=== PATIENT | male | born 1945 | race Caucasian/White ===

== ENCOUNTER → 2016-11-02 | Outpatient (REF) | payer MEDICARE, MEDICAID ==
[~2016-11-02] MED LIST: /BACIOPOI TOP; /PANT40TA OR; /QUET10TA OR; /TAMS4CA OR; ACEP650S PR; ACET-654 GT; ACET65TA OR; AKWASOL OU; ALBU83IN INH; ALBU83IN NEB; ATEN50TA2 GT; BACL-67 GT; BACL10TA2 OR; CALCCHW12 OR; CALCTAB41 PO; CELE10TA OR; CELE20TA GT; CIPR500T4 PO; COLA100C2 OR; DEPA500T OR; DEPA500T2 OR; DIVA500T3 GT; DULC10SU2 PR; DULCOLAX PR; ENSULIQ75 PO; FLAG500T PO; FLEEENE4 PR; FLOM5CAP PO; GABA600T3 OR; GLUC500T OR; GUAI1TAB PO; HYDR-3713 PO; IMOD2TAB16 PO; IMODIUM PO; INSUDET SC; INSUHUMDS SC; IPRASOL4 INH; LEVA500T PO; LEVA750T GT; LORA0.5T OR; METF1000 PO; METHIMAZOLE PO; MILKSUS GT; MILKSUS OR; MIRA3350 GT; MIRALEX PO; MULTIVIT PO; NAPR250T OR; NYST100024 TOP; NYSTPOW4 TOP; Norco PO; OLAN5TAB GT; ONDA4TAB6 PO; PANT40TA2 PO; PERC5TAB8 OR; PREV30CA11 GT; PRIL20CA OR; PROP40TA OR; ROBISYP5 PO; SENN1TAB2 GT; SENN8.6T5 OR; SERO1TAB2 GT; SIME80TA GT; SIMV10TA2 GT; SIMV10TA2 OR; SINE25TA2 OR; SINE25TA5 GT; TAPA5TAB GT; TRAZ100T4 GT; TYLE325T5 PO; VITMTA GT; ZYPR5TAB2 GT
[2016-11-02 14:15] LABS: BASO % 0.5 % (0.0-1.0); EOS # 0.2 K/mm3 (0.0-0.50); LARGE UNSTAINED CELL # 0.2 K/mm3 (0.0-0.4); LARGE UNSTAINED CELL % 2.8 % (0.0-4.0); LYMPH # 2.2 K/mm3 (1.5-4.5); LYMPH % 26.9 % (24.0-44.0); MEAN CORPUSCULAR HEMOGLOBIN 28.9 pg (27.0-33.0); MEAN CORPUSCULAR HGB CONC 31.6 g/dl (32.0-36.5); MEAN CORPUSCULAR VOLUME 91.6 fl (80.0-96.0); MONO # 0.7 K/mm3 (0.0-0.8); NEUTROPHILS % 59.7 % (36.0-66.0); PLATELET COUNT, AUTOMATED 331 k/mm3 (150-450); RED CELL DISTRIBUTION WIDTH 13.7 % (11.5-14.5); WHITE BLOOD COUNT 8.3 K/mm3 (4.0-10.0)
[2016-11-02 14:34] LABS: ALBUMIN 2.8 GM/DL (3.2-5.2); ALBUMIN/GLOBULIN RATIO 0.78 (1.00-1.93); ALKALINE PHOSPHATASE 44 U/L (45-117); ALT/SGPT < 6 U/L (12-78); ANION GAP 6 MEQ/L (8-16); AST/SGOT 9 U/L (15-37); BILIRUBIN,TOTAL 0.2 MG/DL (0.2-1.0); BLOOD UREA NITROGEN 23 MG/DL (7-18); CALCIUM LEVEL 9.4 MG/DL (8.8-10.2); CARBON DIOXIDE LEVEL 37 MEQ/L (21-32); CHLORIDE LEVEL 98 MEQ/L (98-107); CREATININE FOR GFR 0.69 MG/DL (0.70-1.30); GLOMERULAR FILTRATION RATE > 60.0 (>49); GLUCOSE, FASTING 186 MG/DL (80-110); POTASSIUM SERUM 4.8 MEQ/L (3.5-5.1); SODIUM LEVEL 141 MEQ/L (136-145); TOTAL PROTEIN 6.4 GM/DL (6.4-8.2)
--- NOTE | 2016-11-02 18:57 | ECGEPIP ---
Stationary ECG Study [facility] Test Date: 2016-11-02 Pat Name: HARDEEP OSMAN Department: Room: - Gender: M [employer]: : 1945 Requested By: Aden Duran Order Number: [id number] Reading MD: Clark Espino Measurements Intervals [place] Rate: 89 P: 47 CT: 152 QRS: -22 QRSD: 88 T: 19 QT: 371 QTc: 452 Interpretive Statements SINUS RHYTHM LOW QRS VOLTAGE IN PRECORDIAL LEADS POSSIBLE PRIOR INFERIOR WALL INFARCT COMPARED TO THE LAST 2 TRACINGS IN THE SYSTEM, A TYPICAL RIGHT BUNDLE BRANCH BLOCK PATTERN WAS NOTED Electronically Signed On 11-02-2016 18:56:54 EST by Clark Espino
== END | disposition home or self-care (01) ==
LOC: SKLAB7 08:00
PROVIDERS: ATTEND Family Medicine
DX: Z01.818 Encounter for other preprocedural examination (principal); E05.90 Thyrotoxicosis, unspecified without thyrotoxic crisis or storm; R94.31 Abnormal electrocardiogram [ECG] [EKG]

== ENCOUNTER → 2016-11-09 | Outpatient (REF) | payer MEDICARE, MEDICAID ==
--- NOTE | 2016-11-09 16:41 | REP ---
Portable chest x-ray: AP upright view. History: Thyroidectomy. Comparison chest x-ray September 22, 2016. There is soft tissue fullness on both sides of the trachea at the thoracic inlet with marked right to left tracheal narrowing again noted unchanged. This is compatible with thyroid enlargement, left more than right. Tracheal air column is deviated somewhat to the right as well. There is discoid atelectasis in the right base. Oxygen delivery tubing is seen. Lung metcalf are otherwise clear. Heart is mildly enlarged unchanged. Impression: 1. 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 Trachea deviated somewhat to the right. 2. Mild cardiac enlargement. 3. Coarse discoid atelectasis visible in the right base on today's chest x-ray. Signed by Gerson Hernandes MD 11/09/2016 05:09 P
== END ==
LOC: SKLAB7 07:50
PROVIDERS: ATTEND Family Medicine
DX: J98.19 Other pulmonary collapse (principal)

== ENCOUNTER → 2016-11-21 | Outpatient (REF) | payer MEDICARE, MEDICAID ==
[2016-11-21 09:43] LABS: MEAN CORPUSCULAR HEMOGLOBIN 28.6 pg (27.0-33.0); MEAN CORPUSCULAR HGB CONC 31.1 g/dl (32.0-36.5); MEAN CORPUSCULAR VOLUME 91.8 fl (80.0-96.0); RED CELL DISTRIBUTION WIDTH 14.4 % (11.5-14.5); WHITE BLOOD COUNT 12.6 K/mm3 (4.0-10.0)
[2016-11-21 10:06] LABS: ANION GAP 9 MEQ/L (8-16); BLOOD UREA NITROGEN 26 MG/DL (7-18); CALCIUM LEVEL 9.1 MG/DL (8.8-10.2); CARBON DIOXIDE LEVEL 32 MEQ/L (21-32); CHLORIDE LEVEL 100 MEQ/L (98-107); CREATININE FOR GFR 0.76 MG/DL (0.70-1.30); GLOMERULAR FILTRATION RATE > 60.0 (>49); GLUCOSE, FASTING 172 MG/DL (80-110); POTASSIUM SERUM 4.6 MEQ/L (3.5-5.1); SODIUM LEVEL 141 MEQ/L (136-145)
== END ==
LOC: SKLAB7 08:00
PROVIDERS: ATTEND Family Medicine
DX: E03.9 Hypothyroidism, unspecified (principal)

== ENCOUNTER → 2016-12-07 | Outpatient (REF) | payer MEDICARE, MEDICAID ==
[2016-12-07 13:53] LABS: MEAN CORPUSCULAR HEMOGLOBIN 28.8 pg (27.0-33.0); MEAN CORPUSCULAR HGB CONC 31.7 g/dl (32.0-36.5); MEAN CORPUSCULAR VOLUME 90.7 fl (80.0-96.0); RED CELL DISTRIBUTION WIDTH 14.2 % (11.5-14.5); WHITE BLOOD COUNT 11.3 K/mm3 (4.0-10.0)
== END ==
LOC: SKLAB7 12:46
PROVIDERS: ATTEND Family Medicine
DX: K29.70 Gastritis, unspecified, without bleeding (principal)

== ENCOUNTER → 2016-12-15 | Outpatient (REF) | payer MEDICARE, MEDICAID | LOC: SKLAB7 08:00 | PROVIDERS: ATTEND Family Medicine | DX: E04.9 Nontoxic goiter, unspecified (principal) ==

== ENCOUNTER → 2017-01-26 | Outpatient (REF) | payer MEDICARE, MEDICAID ==
[2017-01-26 09:01] LABS: BASO % 0.5 % (0.0-1.0); EOS # 0.3 K/mm3 (0.0-0.50); EOS % 3.2 % (0.0-3.0); LARGE UNSTAINED CELL # 0.2 K/mm3 (0.0-0.4); LYMPH # 1.9 K/mm3 (1.5-4.5); LYMPH % 20.5 % (24.0-44.0); MEAN CORPUSCULAR HEMOGLOBIN 28.5 pg (27.0-33.0); MEAN CORPUSCULAR HGB CONC 31.8 g/dl (32.0-36.5); MEAN CORPUSCULAR VOLUME 89.6 fl (80.0-96.0); MONO # 0.8 K/mm3 (0.0-0.8); MONO % 8.2 % (0.0-5.0); NEUTROPHILS % 65.6 % (36.0-66.0); PLATELET COUNT, AUTOMATED 242 k/mm3 (150-450); RED CELL DISTRIBUTION WIDTH 14.3 % (11.5-14.5); WHITE BLOOD COUNT 9.1 K/mm3 (4.0-10.0)
[2017-01-26 09:25] LABS: ALBUMIN 2.7 GM/DL (3.2-5.2); ALBUMIN/GLOBULIN RATIO 0.71 (1.00-1.93); ALKALINE PHOSPHATASE 52 U/L (45-117); ALT/SGPT 11 U/L (12-78); ANION GAP 7 MEQ/L (8-16); AST/SGOT 12 U/L (15-37); BILIRUBIN,TOTAL 0.2 MG/DL (0.2-1.0); BLOOD UREA NITROGEN 25 MG/DL (7-18); CALCIUM LEVEL 8.6 MG/DL (8.8-10.2); CARBON DIOXIDE LEVEL 33 MEQ/L (21-32); CHLORIDE LEVEL 100 MEQ/L (98-107); CREATININE FOR GFR 0.63 MG/DL (0.70-1.30); GLOMERULAR FILTRATION RATE > 60.0 (>49); GLUCOSE, FASTING 177 MG/DL (80-110); POTASSIUM SERUM 4.3 MEQ/L (3.5-5.1); SODIUM LEVEL 140 MEQ/L (136-145); TOTAL PROTEIN 6.5 GM/DL (6.4-8.2)
== END ==
LOC: SKLAB7 07:00
PROVIDERS: ATTEND Family Medicine
DX: E11.9 Type 2 diabetes mellitus without complications (principal); I10 Essential (primary) hypertension

== ENCOUNTER → 2017-03-13 | Outpatient (REF) | payer MEDICARE, MEDICAID | LOC: SKLAB7 18:50 | PROVIDERS: ATTEND Family Medicine | DX: N39.9 Disorder of urinary system, unspecified (principal) ==

== ENCOUNTER → 2017-03-13 | Outpatient (REF) | payer MEDICARE, MEDICAID | LOC: SKLAB7 19:33 | PROVIDERS: ATTEND Family Medicine | DX: N39.9 Disorder of urinary system, unspecified (principal) ==

== ENCOUNTER → 2017-03-15 | Outpatient (REF) | payer MEDICARE, MEDICAID | LOC: SKLAB7 02:44 | PROVIDERS: ATTEND Family Medicine | DX: N18.6 End stage renal disease (principal); E11.9 Type 2 diabetes mellitus without complications ==

== ENCOUNTER → 2017-03-23 | Outpatient (REF) | payer MEDICARE, MEDICAID | LOC: SKLAB7 08:00 | PROVIDERS: ATTEND Family Medicine | DX: E11.9 Type 2 diabetes mellitus without complications (principal); E78.4 Other hyperlipidemia ==

== ENCOUNTER → 2017-04-27 | Outpatient (REF) | payer MEDICARE, MEDICAID ==
[~2017-04-27] MED LIST changes: -ACET-654 GT; +ACET1TAB17 GT; -BACL-67 GT; +BACL1TAB9 GT; -LEVA750T GT; +LEVA750T7 GT; -METF1000 PO; +METF10004 PO; -NYST100024 TOP; +NYST1POW9 TOP; +PREV1CAP GT; -PREV30CA11 GT; +TRAZ-136 GT; -TRAZ100T4 GT
[2017-04-27 08:20] LABS: BASO % 0.7 % (0.0-1.0); EOS # 0.2 K/mm3 (0.0-0.50); EOS % 3.8 % (0.0-3.0); LARGE UNSTAINED CELL # 0.2 K/mm3 (0.0-0.4); LARGE UNSTAINED CELL % 2.4 % (0.0-4.0); LYMPH # 1.6 K/mm3 (1.5-4.5); LYMPH % 22.8 % (24.0-44.0); MEAN CORPUSCULAR HEMOGLOBIN 30.1 pg (27.0-33.0); MEAN CORPUSCULAR HGB CONC 33.1 g/dl (32.0-36.5); MEAN CORPUSCULAR VOLUME 91.1 fl (80.0-96.0); MONO # 0.6 K/mm3 (0.0-0.8); MONO % 10.1 % (0.0-5.0); NEUTROPHILS # 3.8 K/mm3 (1.8-7.7); NEUTROPHILS % 60.3 % (36.0-66.0); PLATELET COUNT, AUTOMATED 201 k/mm3 (150-450); RED CELL DISTRIBUTION WIDTH 14.1 % (11.5-14.5); WHITE BLOOD COUNT 6.2 K/mm3 (4.0-10.0)
[2017-04-27 09:14] LABS: ALBUMIN 2.7 GM/DL (3.2-5.2); ALBUMIN/GLOBULIN RATIO 0.66 (1.00-1.93); ALKALINE PHOSPHATASE 54 U/L (45-117); ALT/SGPT 16 U/L (12-78); ANION GAP 7 MEQ/L (8-16); AST/SGOT 11 U/L (15-37); BILIRUBIN,TOTAL 0.2 MG/DL (0.2-1.0); BLOOD UREA NITROGEN 22 MG/DL (7-18); CARBON DIOXIDE LEVEL 34 MEQ/L (21-32); CHLORIDE LEVEL 99 MEQ/L (98-107); CREATININE FOR GFR 0.61 MG/DL (0.70-1.30); GLOMERULAR FILTRATION RATE > 60.0 (>42); GLUCOSE, FASTING 159 MG/DL (83-110); POTASSIUM SERUM 4.2 MEQ/L (3.5-5.1); SODIUM LEVEL 140 MEQ/L (136-145); TOTAL PROTEIN 6.8 GM/DL (6.4-8.2)
== END ==
LOC: SKLAB7 07:00
PROVIDERS: ATTEND Family Medicine
DX: E11.9 Type 2 diabetes mellitus without complications (principal)

== ENCOUNTER → 2017-05-09 | Outpatient (REF) | payer MEDICARE, MEDICAID | LOC: SKLAB7 09:52 | PROVIDERS: ATTEND Family Medicine | DX: Z86.14 Personal history of Methicillin resistant Staphylococcus aureus infection (principal) ==

== ENCOUNTER → 2017-05-25 | Outpatient (REF) | payer MEDICARE, MEDICAID | LOC: SKLAB7 09:17 | PROVIDERS: ATTEND Family Medicine | DX: Z11.8 Encounter for screening for other infectious and parasitic diseases (principal) ==

== ENCOUNTER → 2017-06-02 | Outpatient (REF) | payer MEDICARE, MEDICAID | LOC: SKLAB7 14:39 | PROVIDERS: ATTEND Family Medicine | DX: Z86.14 Personal history of Methicillin resistant Staphylococcus aureus infection (principal) ==

== ENCOUNTER → 2017-06-29 | Outpatient (REF) | payer MEDICARE, MEDICAID ==
[2017-06-29 09:35] LABS: THYROXINE (T4) 7.6 UG/DL (4.5-12.0)
== END ==
LOC: SKLAB7 08:04
PROVIDERS: ATTEND Family Medicine
DX: E03.9 Hypothyroidism, unspecified (principal)

== ENCOUNTER → 2017-07-03 | Outpatient (REF) | payer MEDICARE, MEDICAID ==
[2017-07-03 08:38] LABS: ALBUMIN/GLOBULIN RATIO 0.79 (1.00-1.93); ALKALINE PHOSPHATASE 54 U/L (45-117); ALT/SGPT 19 U/L (12-78); ANION GAP 7 MEQ/L (8-16); AST/SGOT 19 U/L (15-37); BILIRUBIN,TOTAL 0.3 MG/DL (0.2-1.0); BLOOD UREA NITROGEN 25 MG/DL (7-18); CARBON DIOXIDE LEVEL 33 MEQ/L (21-32); CHLORIDE LEVEL 100 MEQ/L (98-107); CHOLESTEROL LEVEL 135 MG/DL (<200); CREATININE FOR GFR 0.77 MG/DL (0.70-1.30); GLOMERULAR FILTRATION RATE > 60.0 (>42); GLUCOSE, FASTING 163 MG/DL (83-110); POTASSIUM SERUM 4.5 MEQ/L (3.5-5.1); SODIUM LEVEL 140 MEQ/L (136-145); TOTAL PROTEIN 6.8 GM/DL (6.4-8.2); TRIGLYCERIDES LEVEL 276 MG/DL (<150)
[2017-07-03 09:04] LABS: BASO # 0.1 K/mm3 (0.0-0.2); BASO % 0.9 % (0.0-1.0); EOS # 0.2 K/mm3 (0.0-0.50); EOS % 2.4 % (0.0-3.0); LARGE UNSTAINED CELL # 0.2 K/mm3 (0.0-0.4); LARGE UNSTAINED CELL % 2.9 % (0.0-4.0); LYMPH # 1.2 K/mm3 (1.5-4.5); LYMPH % 18.6 % (24.0-44.0); MEAN CORPUSCULAR HEMOGLOBIN 31.2 pg (27.0-33.0); MEAN CORPUSCULAR HGB CONC 33.8 g/dl (32.0-36.5); MEAN CORPUSCULAR VOLUME 92.3 fl (80.0-96.0); MONO # 0.6 K/mm3 (0.0-0.8); MONO % 8.8 % (0.0-5.0); NEUTROPHILS # 4.4 K/mm3 (1.8-7.7); NEUTROPHILS % 66.3 % (36.0-66.0); PLATELET COUNT, AUTOMATED 212 k/mm3 (150-450); RED CELL DISTRIBUTION WIDTH 13.9 % (11.5-14.5); WHITE BLOOD COUNT 6.6 K/mm3 (4.0-10.0)
== END ==
LOC: SKLAB7 08:00
PROVIDERS: ATTEND Family Medicine
DX: E03.9 Hypothyroidism, unspecified (principal); E78.4 Other hyperlipidemia; R73.01 Impaired fasting glucose

== ENCOUNTER → 2017-07-27 | Outpatient (REF) | payer MEDICARE, MEDICAID ==
[2017-07-27 09:29] LABS: BASO % 0.4 % (0.0-1.0); EOS # 0.2 10^3/uL (0.0-0.50); EOS % 1.4 % (0.0-3.0); IMMATURE GRANULOCYTE % 0.3 % (0-0); LYMPH # 1.9 10^3/uL (1.5-4.5); LYMPH % 17.4 % (24.0-44.0); MEAN CORPUSCULAR HEMOGLOBIN 29.5 pg (27.0-33.0); MEAN CORPUSCULAR HGB CONC 31.6 g/dl (32.0-36.5); MEAN CORPUSCULAR VOLUME 93.5 fl (80.0-96.0); MONO # 1.2 10^3/uL (0.0-0.8); MONO % 10.8 % (0.0-5.0); NEUTROPHILS # 7.5 10^3/uL (1.8-7.7); NEUTROPHILS % 69.7 % (36.0-66.0); PLATELET COUNT, AUTOMATED 238 10^3/uL (150-450); RED CELL DISTRIBUTION WIDTH 13.6 % (11.5-14.5); WHITE BLOOD COUNT 10.7 10^3/uL (4.0-10.0)
[2017-07-27 10:15] LABS: ALBUMIN 3.1 GM/DL (3.2-5.2); ALKALINE PHOSPHATASE 52 U/L (45-117); ALT/SGPT 17 U/L (12-78); ANION GAP 3 MEQ/L (8-16); AST/SGOT 5 U/L (15-37); BILIRUBIN,TOTAL 0.3 MG/DL (0.2-1.0); BLOOD UREA NITROGEN 29 MG/DL (7-18); CALCIUM LEVEL 9.2 MG/DL (8.8-10.2); CARBON DIOXIDE LEVEL 35 MEQ/L (21-32); CHLORIDE LEVEL 102 MEQ/L (98-107); CHOLESTEROL LEVEL 132 MG/DL (<200); CREATININE FOR GFR 0.69 MG/DL (0.70-1.30); GLOMERULAR FILTRATION RATE > 60.0 (>42); GLUCOSE, FASTING 160 MG/DL (83-110); POTASSIUM SERUM 4.2 MEQ/L (3.5-5.1); SODIUM LEVEL 140 MEQ/L (136-145); TOTAL PROTEIN 7.5 GM/DL (6.4-8.2); TRIGLYCERIDES LEVEL 240 MG/DL (<150)
== END ==
LOC: SKLAB7 07:00
PROVIDERS: ATTEND Family Medicine
DX: E11.9 Type 2 diabetes mellitus without complications (principal); E78.5 Hyperlipidemia, unspecified; E03.9 Hypothyroidism, unspecified

== ENCOUNTER → 2017-09-28 | Outpatient (REF) | payer MEDICARE, MEDICAID ==
[2017-09-28 10:14] LABS: FREE T4 0.91 NG/DL (0.76-1.46)
== END ==
LOC: SKLAB7 07:00
PROVIDERS: ATTEND Family Medicine
DX: E03.9 Hypothyroidism, unspecified (principal)

== ENCOUNTER → 2017-10-12 | Outpatient (REF) | payer MEDICARE, MEDICAID ==
[2017-10-12 10:42] LABS: HEMATOCRIT 33.6 % (42.0-52.0); HEMOGLOBIN 10.9 g/dl (14.0-18.0); MEAN CORPUSCULAR HEMOGLOBIN 29.7 pg (27.0-33.0); MEAN CORPUSCULAR HGB CONC 32.4 g/dl (32.0-36.5); MEAN CORPUSCULAR VOLUME 91.6 fl (80.0-96.0); PLATELET COUNT, AUTOMATED 170 10^3/uL (150-450); RED BLOOD COUNT 3.67 10^6/uL (4.30-6.10); RED CELL DISTRIBUTION WIDTH 13.9 % (11.5-14.5); WHITE BLOOD COUNT 10.7 10^3/uL (4.0-10.0)
== END ==
LOC: SKLAB7 10:18
DX: R91.8 Other nonspecific abnormal finding of lung field (principal); R06.2 Wheezing
CPT/HCPCS: 71045

== ENCOUNTER → 2017-10-26 | Outpatient (REF) | payer MEDICARE, MEDICAID ==
[2017-10-26 10:44] LABS: ALBUMIN 2.6 GM/DL (3.2-5.2); ALBUMIN/GLOBULIN RATIO 0.65 (1.00-1.93); ALKALINE PHOSPHATASE 52 U/L (45-117); ALT/SGPT < 6 U/L (12-78); ANION GAP 8 MEQ/L (8-16); AST/SGOT 14 U/L (7-37); BILIRUBIN,TOTAL 0.3 MG/DL (0.2-1.0); BLOOD UREA NITROGEN 39 MG/DL (7-18); CALCIUM LEVEL 8.6 MG/DL (8.8-10.2); CARBON DIOXIDE LEVEL 33 MEQ/L (21-32); CHLORIDE LEVEL 99 MEQ/L (98-107); CREATININE FOR GFR 0.82 MG/DL (0.70-1.30); GLOMERULAR FILTRATION RATE > 60.0 (>42); GLUCOSE, FASTING 332 MG/DL (83-110); POTASSIUM SERUM 4.6 MEQ/L (3.5-5.1); SODIUM LEVEL 140 MEQ/L (136-145); TOTAL PROTEIN 6.6 GM/DL (6.4-8.2)
== END ==
LOC: SKLAB7 07:00
DX: E11.9 Type 2 diabetes mellitus without complications (principal); G20 Parkinson's disease
CPT/HCPCS: 80053

== ENCOUNTER → 2017-12-21 | Outpatient (REF) | payer MEDICARE, MEDICAID ==
[2017-12-21 09:01] LABS: FREE T4 1.04 NG/DL (0.76-1.46)
[2017-12-21 09:01] LABS: THYROID STIMULATING HORMONE 0.607 uIU/ML (0.358-3.740)
== END ==
LOC: SKLAB7 08:00
DX: E03.9 Hypothyroidism, unspecified (principal)
CPT/HCPCS: 84443

== ENCOUNTER → 2018-01-25 | Outpatient (REF) | payer MEDICARE, MEDICAID ==
[2018-01-25 08:59] LABS: BASO % 0.3 % (0.0-1.0); EOS % 0.4 % (0.0-3.0); HEMATOCRIT 38.5 % (42.0-52.0); HEMOGLOBIN 12.2 g/dl (13.5-17.5); IMMATURE GRANULOCYTE % 0.4 % (0-3.0); LYMPH # 1.2 10^3/uL (1.5-4.5); LYMPH % 10.6 % (24.0-44.0); MEAN CORPUSCULAR HEMOGLOBIN 28.7 pg (27.0-33.0); MEAN CORPUSCULAR HGB CONC 31.7 g/dl (32.0-36.5); MEAN CORPUSCULAR VOLUME 90.6 fl (80.0-96.0); MONO # 0.9 10^3/uL (0.0-0.8); MONO % 8.2 % (0.0-5.0); NEUTROPHILS # 8.9 10^3/uL (1.8-7.7); NEUTROPHILS % 80.1 % (36.0-66.0); PLATELET COUNT, AUTOMATED 224 10^3/uL (150-450); RED BLOOD COUNT 4.25 10^6/uL (4.30-6.10); RED CELL DISTRIBUTION WIDTH 14.4 % (11.5-14.5); WHITE BLOOD COUNT 11.1 10^3/uL (4.0-10.0)
[2018-01-25 09:17] LABS: ALBUMIN 2.9 GM/DL (3.2-5.2); ALBUMIN/GLOBULIN RATIO 0.67 (1.00-1.93); ALKALINE PHOSPHATASE 59 U/L (45-117); ALT/SGPT < 6 U/L (12-78); ANION GAP 7 MEQ/L (8-16); AST/SGOT 6 U/L (7-37); BILIRUBIN,TOTAL 0.3 MG/DL (0.2-1.0); BLOOD UREA NITROGEN 33 MG/DL (7-18); CALCIUM LEVEL 8.9 MG/DL (8.8-10.2); CARBON DIOXIDE LEVEL 30 MEQ/L (21-32); CHLORIDE LEVEL 100 MEQ/L (98-107); CHOLESTEROL LEVEL 115 MG/DL (<200); CHOLESTEROL RISK RATIO 3.382 (<5); CREATININE FOR GFR 0.87 MG/DL (0.70-1.30); GLOMERULAR FILTRATION RATE > 60.0 (>42); GLUCOSE, FASTING 323 MG/DL (70-100); HDL CHOLESTEROL 34 MG/DL (>40); LDL CHOLESTEROL 46.8 MG/DL (<100); NON-HDL-C 81 MG/DL; POTASSIUM SERUM 4.8 MEQ/L (3.5-5.1); SODIUM LEVEL 137 MEQ/L (136-145); TOTAL PROTEIN 7.2 GM/DL (6.4-8.2); TRIGLYCERIDES LEVEL 171 MG/DL (<150); VALPROIC ACID (DEPAKOTE) 72.4 UG/ML (50.0-100.0)
[2018-01-25 10:39] LABS: ESTIMATED AVERAGE GLUCOSE 200 MG/DL (60-110); HEMOGLOBIN A1c 8.6 %
== END ==
LOC: SKLAB7 11:44
DX: E78.5 Hyperlipidemia, unspecified (principal); E11.9 Type 2 diabetes mellitus without complications; Z79.899 Other long term (current) drug therapy
CPT/HCPCS: 80164

== ENCOUNTER → 2018-04-15 | Outpatient (REF) | payer MEDICARE, MEDICAID ==
[2018-04-15 03:10] LABS: HEMOGLOBIN 13.8 g/dl (13.5-17.5); MEAN CORPUSCULAR HEMOGLOBIN 29.4 pg (27.0-33.0); MEAN CORPUSCULAR HGB CONC 32.1 g/dl (32.0-36.5); MEAN CORPUSCULAR VOLUME 91.7 fl (80.0-96.0); PLATELET COUNT, AUTOMATED 235 10^3/uL (150-450); RED BLOOD COUNT 4.69 10^6/uL (4.30-6.10); RED CELL DISTRIBUTION WIDTH 14.5 % (11.5-14.5); WHITE BLOOD COUNT 11.8 10^3/uL (4.0-10.0)
[2018-04-15 03:29] LABS: ANION GAP 9 MEQ/L (8-16); BLOOD UREA NITROGEN 34 MG/DL (7-18); CALCIUM LEVEL 9.3 MG/DL (8.8-10.2); CARBON DIOXIDE LEVEL 34 MEQ/L (21-32); CHLORIDE LEVEL 96 MEQ/L (98-107); CREATININE FOR GFR 0.97 MG/DL (0.70-1.30); FREE T4 1.13 NG/DL (0.76-1.46); GLOMERULAR FILTRATION RATE > 60.0 (>42); GLUCOSE, FASTING 276 MG/DL (70-100); POTASSIUM SERUM 4.6 MEQ/L (3.5-5.1); SODIUM LEVEL 139 MEQ/L (136-145); THYROID STIMULATING HORMONE 0.594 uIU/ML (0.358-3.740)
== END ==
LOC: SKLAB7 02:43
DX: R00.0 Tachycardia, unspecified (principal); R06.00 Dyspnea, unspecified; R91.8 Other nonspecific abnormal finding of lung field
CPT/HCPCS: 71045

== ENCOUNTER → 2018-04-16 | Outpatient (REF) | payer MEDICARE, MEDICAID | LOC: SKLAB7 08:42 | DX: R00.8 Other abnormalities of heart beat (principal) | CPT/HCPCS: 93005 ==

== ENCOUNTER → 2018-04-18 | Outpatient (REF) | payer MEDICARE, MEDICAID | LOC: SKLAB7 10:35 | DX: D64.9 Anemia, unspecified (principal) | CPT/HCPCS: 82270 ==

== ENCOUNTER → 2018-04-22 | Outpatient (REF) | payer MEDICARE, MEDICAID | LOC: SKLAB7 12:17 | DX: R19.5 Other fecal abnormalities (principal) | CPT/HCPCS: 82270 ==

== ENCOUNTER → 2018-04-26 | Outpatient (REF) | payer MEDICARE, MEDICAID ==
[2018-04-26 09:10] LABS: BASO % 0.2 % (0.0-1.0); EOS # 0.2 10^3/uL (0.0-0.50); HEMATOCRIT 39.7 % (42.0-52.0); HEMOGLOBIN 12.6 g/dl (13.5-17.5); IMMATURE GRANULOCYTE % 0.4 % (0-3.0); LYMPH # 1.5 10^3/uL (1.5-4.5); LYMPH % 17.5 % (24.0-44.0); MEAN CORPUSCULAR HEMOGLOBIN 29.2 pg (27.0-33.0); MEAN CORPUSCULAR HGB CONC 31.7 g/dl (32.0-36.5); MEAN CORPUSCULAR VOLUME 91.9 fl (80.0-96.0); MONO # 1.1 10^3/uL (0.0-0.8); MONO % 12.4 % (0.0-5.0); NEUTROPHILS # 5.7 10^3/uL (1.8-7.7); NEUTROPHILS % 67.5 % (36.0-66.0); PLATELET COUNT, AUTOMATED 226 10^3/uL (150-450); RED BLOOD COUNT 4.32 10^6/uL (4.30-6.10); RED CELL DISTRIBUTION WIDTH 14.2 % (11.5-14.5); WHITE BLOOD COUNT 8.5 10^3/uL (4.0-10.0)
[2018-04-26 09:38] LABS: ALBUMIN/GLOBULIN RATIO 0.79 (1.00-1.93); ALKALINE PHOSPHATASE 65 U/L (45-117); ALT/SGPT 19 U/L (12-78); ANION GAP 8 MEQ/L (8-16); AST/SGOT 12 U/L (7-37); BILIRUBIN,TOTAL 0.3 MG/DL (0.2-1.0); BLOOD UREA NITROGEN 31 MG/DL (7-18); CALCIUM LEVEL 9.6 MG/DL (8.8-10.2); CARBON DIOXIDE LEVEL 34 MEQ/L (21-32); CHLORIDE LEVEL 100 MEQ/L (98-107); CREATININE FOR GFR 0.84 MG/DL (0.70-1.30); GLOMERULAR FILTRATION RATE > 60.0 (>42); GLUCOSE, FASTING 257 MG/DL (70-100); POTASSIUM SERUM 4.5 MEQ/L (3.5-5.1); SODIUM LEVEL 142 MEQ/L (136-145); TOTAL PROTEIN 6.8 GM/DL (6.4-8.2)
== END ==
LOC: SKLAB7 08:00
DX: E11.9 Type 2 diabetes mellitus without complications (principal); E78.5 Hyperlipidemia, unspecified; G21.9 Secondary parkinsonism, unspecified
CPT/HCPCS: 80053

== ENCOUNTER → 2018-04-26 | Outpatient (REF) | payer MEDICARE, MEDICAID | LOC: SKLAB7 | DX: R19.5 Other fecal abnormalities (principal) ==

== ENCOUNTER 2018-04-28 02:57 | Emergency (ER) | payer MEDICARE, MEDICAID | END 2018-04-28 05:09 | disposition home or self-care (01) | LOC: M ED 05:09 | DX: K94.20 Gastrostomy complication, unspecified (principal); Z79.4 Long term (current) use of insulin; Z79.899 Other long term (current) drug therapy; Z88.1 Allergy status to other antibiotic agents; Z88.0 Allergy status to penicillin | CPT/HCPCS: 99284 ==

== ENCOUNTER → 2018-05-02 | Outpatient (REF) | payer MEDICARE, MEDICAID ==
[2018-05-02 08:00] LABS: BASO % 0.4 % (0.0-1.0); EOS # 0.2 10^3/uL (0.0-0.50); EOS % 3.1 % (0.0-3.0); HEMATOCRIT 34.5 % (42.0-52.0); HEMOGLOBIN 11.1 g/dl (13.5-17.5); IMMATURE GRANULOCYTE % 0.3 % (0-3.0); LYMPH # 1.9 10^3/uL (1.5-4.5); LYMPH % 24.6 % (24.0-44.0); MEAN CORPUSCULAR HEMOGLOBIN 29.4 pg (27.0-33.0); MEAN CORPUSCULAR HGB CONC 32.2 g/dl (32.0-36.5); MEAN CORPUSCULAR VOLUME 91.5 fl (80.0-96.0); MONO # 0.9 10^3/uL (0.0-0.8); MONO % 11.8 % (0.0-5.0); NEUTROPHILS # 4.7 10^3/uL (1.8-7.7); NEUTROPHILS % 59.8 % (36.0-66.0); PLATELET COUNT, AUTOMATED 186 10^3/uL (150-450); RED BLOOD COUNT 3.77 10^6/uL (4.30-6.10); RED CELL DISTRIBUTION WIDTH 14.3 % (11.5-14.5); WHITE BLOOD COUNT 7.8 10^3/uL (4.0-10.0)
[2018-05-02 08:41] LABS: ALBUMIN 2.6 GM/DL (3.2-5.2); ALKALINE PHOSPHATASE 53 U/L (45-117); ALT/SGPT 14 U/L (12-78); ANION GAP 5 MEQ/L (8-16); AST/SGOT 13 U/L (7-37); BILIRUBIN,TOTAL 0.2 MG/DL (0.2-1.0); BLOOD UREA NITROGEN 29 MG/DL (7-18); CARBON DIOXIDE LEVEL 33 MEQ/L (21-32); CHLORIDE LEVEL 102 MEQ/L (98-107); CREATININE FOR GFR 0.71 MG/DL (0.70-1.30); GLOMERULAR FILTRATION RATE > 60.0 (>42); GLUCOSE, FASTING 251 MG/DL (70-100); POTASSIUM SERUM 4.8 MEQ/L (3.5-5.1); SODIUM LEVEL 140 MEQ/L (136-145); TOTAL PROTEIN 6.9 GM/DL (6.4-8.2)
[2018-05-02 09:05] LABS: POS COUNT POS FLAG
== END ==
LOC: SKLAB7 07:03
DX: R06.9 Unspecified abnormalities of breathing (principal)
CPT/HCPCS: 71045

== ENCOUNTER → 2018-05-31 | Outpatient (REF) | payer MEDICARE, MEDICAID ==
[2018-05-31 09:56] LABS: ESTIMATED AVERAGE GLUCOSE 183 MG/DL (60-110)
== END ==
LOC: SKLAB7 07:57
DX: E11.9 Type 2 diabetes mellitus without complications (principal)
CPT/HCPCS: 83036

== ENCOUNTER → 2018-06-08 | Outpatient (REF) | payer MEDICARE, MEDICAID ==
[2018-06-08 03:07] LABS: HEMATOCRIT 38.5 % (42.0-52.0); HEMOGLOBIN 12.5 g/dl (13.5-17.5); MEAN CORPUSCULAR HGB CONC 32.5 g/dl (32.0-36.5); MEAN CORPUSCULAR VOLUME 92.5 fl (80.0-96.0); PLATELET COUNT, AUTOMATED 179 10^3/uL (150-450); RED BLOOD COUNT 4.16 10^6/uL (4.30-6.10); RED CELL DISTRIBUTION WIDTH 14.7 % (11.5-14.5); WHITE BLOOD COUNT 17.5 10^3/uL (4.0-10.0)
[2018-06-08 03:30] LABS: ANION GAP 9 MEQ/L (8-16); BLOOD UREA NITROGEN 27 MG/DL (7-18); CALCIUM LEVEL 9.3 MG/DL (8.8-10.2); CARBON DIOXIDE LEVEL 33 MEQ/L (21-32); CHLORIDE LEVEL 98 MEQ/L (98-107); GLOMERULAR FILTRATION RATE > 60.0 (>42); GLUCOSE, FASTING 195 MG/DL (70-100); POTASSIUM SERUM 4.7 MEQ/L (3.5-5.1); SODIUM LEVEL 140 MEQ/L (136-145)
== END ==
LOC: SKLAB7 02:20
DX: R50.9 Fever, unspecified (principal); R91.8 Other nonspecific abnormal finding of lung field
CPT/HCPCS: 71045

== ENCOUNTER → 2018-06-09 | Outpatient (REF) | payer MEDICARE, MEDICAID ==
[2018-06-09 10:12] LABS: HEMATOCRIT 36.2 % (42.0-52.0); HEMOGLOBIN 11.6 g/dl (13.5-17.5); MEAN CORPUSCULAR HEMOGLOBIN 30.1 pg (27.0-33.0); PLATELET COUNT, AUTOMATED 182 10^3/uL (150-450); RED BLOOD COUNT 3.85 10^6/uL (4.30-6.10); RED CELL DISTRIBUTION WIDTH 14.7 % (11.5-14.5); WHITE BLOOD COUNT 9.3 10^3/uL (4.0-10.0)
[2018-06-09 10:26] LABS: ANION GAP 8 MEQ/L (8-16); BLOOD UREA NITROGEN 27 MG/DL (7-18); CALCIUM LEVEL 9.4 MG/DL (8.8-10.2); CARBON DIOXIDE LEVEL 34 MEQ/L (21-32); CHLORIDE LEVEL 98 MEQ/L (98-107); CREATININE FOR GFR 0.77 MG/DL (0.70-1.30); GLOMERULAR FILTRATION RATE > 60.0 (>42); GLUCOSE, FASTING 183 MG/DL (70-100); POTASSIUM SERUM 4.5 MEQ/L (3.5-5.1); SODIUM LEVEL 140 MEQ/L (136-145)
== END ==
LOC: SKLAB7 08:00
DX: R50.9 Fever, unspecified (principal)
CPT/HCPCS: 80048

== ENCOUNTER → 2018-06-15 | Outpatient (REF) | payer MEDICARE, MEDICAID ==
[2018-06-15 13:59] LABS: BASO % 0.3 % (0.0-1.0); EOS % 0.3 % (0.0-3.0); HEMATOCRIT 38.4 % (42.0-52.0); HEMOGLOBIN 12.3 g/dl (13.5-17.5); IMMATURE GRANULOCYTE % 0.6 % (0-3.0); LYMPH # 0.9 10^3/uL (1.5-4.5); LYMPH % 6.5 % (24.0-44.0); MEAN CORPUSCULAR HEMOGLOBIN 29.6 pg (27.0-33.0); MEAN CORPUSCULAR VOLUME 92.3 fl (80.0-96.0); MONO # 0.4 10^3/uL (0.0-0.8); MONO % 3.1 % (0.0-5.0); NEUTROPHILS # 12.3 10^3/uL (1.8-7.7); NEUTROPHILS % 89.2 % (36.0-66.0); PLATELET COUNT, AUTOMATED 197 10^3/uL (150-450); RED BLOOD COUNT 4.16 10^6/uL (4.30-6.10); RED CELL DISTRIBUTION WIDTH 14.3 % (11.5-14.5); WHITE BLOOD COUNT 13.8 10^3/uL (4.0-10.0)
[2018-06-15 14:20] LABS: ANION GAP 8 MEQ/L (8-16); BLOOD UREA NITROGEN 27 MG/DL (7-18); CALCIUM LEVEL 9.2 MG/DL (8.8-10.2); CARBON DIOXIDE LEVEL 32 MEQ/L (21-32); CHLORIDE LEVEL 99 MEQ/L (98-107); GLOMERULAR FILTRATION RATE > 60.0 (>42); GLUCOSE, FASTING 208 MG/DL (70-100); POTASSIUM SERUM 4.9 MEQ/L (3.5-5.1); SODIUM LEVEL 139 MEQ/L (136-145)
== END ==
LOC: SKLAB7 12:51
DX: J18.9 Pneumonia, unspecified organism (principal)
CPT/HCPCS: 36415

== ENCOUNTER → 2018-06-20 | Outpatient (REF) | payer MEDICARE, MEDICAID ==
[2018-06-20 14:55] LABS: BASO % 0.3 % (0.0-1.0); HEMATOCRIT 39.1 % (42.0-52.0); HEMOGLOBIN 12.3 g/dl (13.5-17.5); IMMATURE GRANULOCYTE % 0.6 % (0-3.0); LYMPH % 9.8 % (24.0-44.0); MEAN CORPUSCULAR HEMOGLOBIN 29.5 pg (27.0-33.0); MEAN CORPUSCULAR HGB CONC 31.5 g/dl (32.0-36.5); MEAN CORPUSCULAR VOLUME 93.8 fl (80.0-96.0); MONO # 0.2 10^3/uL (0.0-0.8); MONO % 2.1 % (0.0-5.0); NEUTROPHILS # 8.8 10^3/uL (1.8-7.7); NEUTROPHILS % 87.2 % (36.0-66.0); PLATELET COUNT, AUTOMATED 206 10^3/uL (150-450); RED BLOOD COUNT 4.17 10^6/uL (4.30-6.10); RED CELL DISTRIBUTION WIDTH 14.1 % (11.5-14.5); WHITE BLOOD COUNT 10.1 10^3/uL (4.0-10.0)
== END ==
LOC: SKLAB7 14:18
DX: J18.9 Pneumonia, unspecified organism (principal)
CPT/HCPCS: 85025

== ENCOUNTER → 2018-06-21 | Outpatient (REF) | payer MEDICARE, MEDICAID | LOC: SKLAB7 09:46 | DX: R06.2 Wheezing (principal); J34.89 Other specified disorders of nose and nasal sinuses | CPT/HCPCS: 87186 ==

== ENCOUNTER → 2018-07-01 | Outpatient (CLI) | payer MEDICARE, MEDICAID | LOC: SKLAB7 20:19 | DX: R09.89 Other specified symptoms and signs involving the circulatory and respiratory systems (principal) | CPT/HCPCS: 71045 ==

== ENCOUNTER → 2018-07-02 | Outpatient (REF) | payer MEDICARE, MEDICAID ==
[2018-07-02 08:00] LABS: BASO % 0.3 % (0.0-1.0); EOS # 0.4 10^3/uL (0.0-0.50); EOS % 2.7 % (0.0-3.0); HEMATOCRIT 41.3 % (42.0-52.0); HEMOGLOBIN 12.5 g/dl (13.5-17.5); IMMATURE GRANULOCYTE % 0.4 % (0-3.0); LYMPH # 1.1 10^3/uL (1.5-4.5); LYMPH % 8.4 % (24.0-44.0); MEAN CORPUSCULAR HEMOGLOBIN 29.6 pg (27.0-33.0); MEAN CORPUSCULAR HGB CONC 30.3 g/dl (32.0-36.5); MEAN CORPUSCULAR VOLUME 97.9 fl (80.0-96.0); MONO # 1.3 10^3/uL (0.0-0.8); MONO % 9.7 % (0.0-5.0); NEUTROPHILS # 10.5 10^3/uL (1.8-7.7); NEUTROPHILS % 78.5 % (36.0-66.0); PLATELET COUNT, AUTOMATED 188 10^3/uL (150-450); RED BLOOD COUNT 4.22 10^6/uL (4.30-6.10); RED CELL DISTRIBUTION WIDTH 14.7 % (11.5-14.5); WHITE BLOOD COUNT 13.3 10^3/uL (4.0-10.0)
[2018-07-02 08:18] LABS: ANION GAP 7 MEQ/L (8-16); BLOOD UREA NITROGEN 48 MG/DL (7-18); CALCIUM LEVEL 9.3 MG/DL (8.8-10.2); CARBON DIOXIDE LEVEL 37 MEQ/L (21-32); CHLORIDE LEVEL 103 MEQ/L (98-107); CREATININE FOR GFR 0.88 MG/DL (0.70-1.30); GLOMERULAR FILTRATION RATE > 60.0 (>42); GLUCOSE, FASTING 293 MG/DL (70-100); POTASSIUM SERUM 4.8 MEQ/L (3.5-5.1); SODIUM LEVEL 147 MEQ/L (136-145)
== END ==
LOC: SKLAB7 06:59
DX: I63.9 Cerebral infarction, unspecified (principal); R09.81 Nasal congestion
CPT/HCPCS: 36415